=== PATIENT | female | born 1955 | race Two or more races ===

== ENCOUNTER → 2018-03-27 | Outpatient (CLI) | payer OTHER | END | disposition home or self-care (01) | LOC: RAD 15:38 | DX: S63.091A Other subluxation of right wrist and hand, initial encounter (principal); I10 Essential (primary) hypertension; M54.5 Low back pain; E78.89 Other lipoprotein metabolism disorders; E03.8 Other specified hypothyroidism; E66.8 Other obesity; F41.8 Other specified anxiety disorders ==

== ENCOUNTER 2018-06-06 15:18 | Outpatient (CLI) | payer OTHER | END 2018-06-06 15:28 | disposition home or self-care (01) | LOC: MAMO-SONO 15:18 | DX: Z12.31 Encounter for screening mammogram for malignant neoplasm of breast (principal); Z12.39 Encounter for other screening for malignant neoplasm of breast; I10 Essential (primary) hypertension; M54.5 Low back pain; E78.89 Other lipoprotein metabolism disorders; E03.8 Other specified hypothyroidism; E66.8 Other obesity; F41.8 Other specified anxiety disorders ==

== ENCOUNTER → 2019-08-14 | Outpatient (CLI) | payer OTHER | END | disposition home or self-care (01) | LOC: MAMO-SONO 14:51 | DX: Z12.31 Encounter for screening mammogram for malignant neoplasm of breast (principal); Z87.898 Personal history of other specified conditions; I10 Essential (primary) hypertension; M54.5 Low back pain; E78.49 Other hyperlipidemia; E03.8 Other specified hypothyroidism; E66.8 Other obesity; F41.8 Other specified anxiety disorders; Z12.11 Encounter for screening for malignant neoplasm of colon; Z13.820 Encounter for screening for osteoporosis; Z12.39 Encounter for other screening for malignant neoplasm of breast ==

== ENCOUNTER 2019-09-11 14:42 | Outpatient (CLI) | payer OTHER | END 2019-09-11 14:45 | disposition home or self-care (01) | LOC: RAD 14:42 | DX: M25.511 Pain in right shoulder (principal); M79.621 Pain in right upper arm ==

== ENCOUNTER 2019-09-27 11:10 | Outpatient (CLI) | payer OTHER | END 2019-09-27 11:33 | disposition home or self-care (01) | LOC: NUCLEAR 11:10 | DX: M81.0 Age-related osteoporosis without current pathological fracture (principal) ==

== ENCOUNTER → 2019-10-18 | Outpatient (CLI) | payer OTHER | END | disposition home or self-care (01) | LOC: MAMO-SONO 14:15 → SONOGRAMA 14:36 | DX: M25.511 Pain in right shoulder (principal) ==

== ENCOUNTER 2020-03-23 11:20 | Outpatient (CLI) | payer OTHER ==
[2020-03-27] MEDS ORDERED: LEVO-T100 MCG PO (12:46)
[2020-03-27] MEDS ORDERED: INDERAL XL80 MG PO (12:46)
[2020-03-27] MEDS ORDERED: NORVASC5 MG PO (12:47)
[2020-03-27] MEDS ORDERED: SIMVASTATIN5 MG PO (12:47)
[2020-03-27] MEDS ORDERED: ZYRTEC10 M3 PO (12:48)
[2020-03-27] MEDS ORDERED: LOTENSIN20 MG PO (12:48)
== END 2020-03-23 11:29 | disposition home or self-care (01) ==
LOC: LAB 11:20
PROVIDERS: ATTEND Orthopaedic Surgery
DX: D64.89 Other specified anemias (principal); E88.89 Other specified metabolic disorders; D68.8 Other specified coagulation defects; N39.0 Urinary tract infection, site not specified; Z22.322 Carrier or suspected carrier of Methicillin resistant Staphylococcus aureus

== ENCOUNTER 2020-03-25 12:33 | Outpatient (CLI) | payer OTHER ==
[2020-03-27] MEDS ORDERED: INDERAL XL80 MG PO (12:46)
[2020-03-27] MEDS ORDERED: LEVO-T100 MCG PO (12:46)
[2020-03-27] MEDS ORDERED: NORVASC5 MG PO (12:47)
[2020-03-27] MEDS ORDERED: SIMVASTATIN5 MG PO (12:47)
[2020-03-27] MEDS ORDERED: ZYRTEC10 M3 PO (12:48)
[2020-03-27] MEDS ORDERED: LOTENSIN20 MG PO (12:48)
== END 2020-03-25 12:43 | disposition home or self-care (01) ==
LOC: RAD 12:33
PROVIDERS: ATTEND Orthopaedic Surgery
DX: Z76.89 Persons encountering health services in other specified circumstances (principal)

== ENCOUNTER 2020-03-25 13:17 | Outpatient (CLI) | payer OTHER ==
[2020-03-27] MEDS ORDERED: INDERAL XL80 MG PO (12:46)
[2020-03-27] MEDS ORDERED: LEVO-T100 MCG PO (12:46)
[2020-03-27] MEDS ORDERED: NORVASC5 MG PO (12:47)
[2020-03-27] MEDS ORDERED: SIMVASTATIN5 MG PO (12:47)
[2020-03-27] MEDS ORDERED: LOTENSIN20 MG PO (12:48)
[2020-03-27] MEDS ORDERED: ZYRTEC10 M3 PO (12:48)
== END 2020-03-25 13:25 | disposition home or self-care (01) ==
LOC: EKG 13:17
PROVIDERS: ATTEND Orthopaedic Surgery
DX: I49.8 Other specified cardiac arrhythmias (principal); I10 Essential (primary) hypertension

== ENCOUNTER 2020-03-31 07:42 | Day surgery (SDC) | payer OTHER ==
[~2020-03-31 07:42] MED LIST: INDERAL XL80 MG PO; LEVO-T100 MCG PO; LOTENSIN20 MG PO; NORVASC5 MG PO; SIMVASTATIN5 MG PO; ZYRTEC10 M3 PO
== END 2020-03-31 17:00 | disposition home or self-care (01) ==
LOC: CIR.AMB 07:42
PROVIDERS: ATTEND Orthopaedic Surgery
DX: M75.121 Complete rotator cuff tear or rupture of right shoulder, not specified as traumatic (principal); M75.41 Impingement syndrome of right shoulder; M25.311 Other instability, right shoulder; M19.011 Primary osteoarthritis, right shoulder; M75.21 Bicipital tendinitis, right shoulder; M24.511 Contracture, right shoulder

== ENCOUNTER 2020-10-19 14:37 | Outpatient (CLI) | payer OTHER ==
[~2020-10-19 14:37] MED LIST changes: +ZANAFLEX2 MG PO
== END 2020-10-19 14:56 | disposition home or self-care (01) ==
LOC: MAMO-SONO 14:37
PROVIDERS: ATTEND Internal Medicine
DX: Z12.31 Encounter for screening mammogram for malignant neoplasm of breast (principal); E03.8 Other specified hypothyroidism; I10 Essential (primary) hypertension; M54.5 Low back pain; E78.89 Other lipoprotein metabolism disorders; E66.8 Other obesity; F41.8 Other specified anxiety disorders; Z12.11 Encounter for screening for malignant neoplasm of colon

== ENCOUNTER 2021-08-03 13:34 | Outpatient (CLI) | payer OTHER | END 2021-08-03 13:35 | disposition home or self-care (01) | LOC: NUCLEAR 13:34 | PROVIDERS: ATTEND Internal Medicine | DX: M81.0 Age-related osteoporosis without current pathological fracture (principal); M54.59 Other low back pain; Z13.820 Encounter for screening for osteoporosis ==

== ENCOUNTER 2022-01-05 08:00 | Outpatient (CLI) | payer OTHER | END 2022-01-05 08:30 | disposition home or self-care (01) | LOC: PPH VACUNA 08:00 | PROVIDERS: ATTEND Emergency Medicine Pediatric Emergency Medicine | DX: Z23 Encounter for immunization (principal) ==

== ENCOUNTER → 2022-02-02 | Outpatient (CLI) | payer OTHER | END | disposition home or self-care (01) | LOC: MAMO-SONO 11:42 | PROVIDERS: ATTEND Emergency Medicine Pediatric Emergency Medicine | DX: Z12.31 Encounter for screening mammogram for malignant neoplasm of breast (principal); N60.89 Other benign mammary dysplasias of unspecified breast; I10 Essential (primary) hypertension; M54.50 Low back pain, unspecified; E78.9 Disorder of lipoprotein metabolism, unspecified; D03.9 Melanoma in situ, unspecified; E66.8 Other obesity; F41.9 Anxiety disorder, unspecified; Z12.11 Encounter for screening for malignant neoplasm of colon; Z13.820 Encounter for screening for osteoporosis ==

== ENCOUNTER 2022-07-06 14:55 | Outpatient (CLI) | payer OTHER | END 2022-07-06 15:05 | disposition home or self-care (01) | LOC: PPH VACUNA 14:55 | PROVIDERS: ATTEND Emergency Medicine Pediatric Emergency Medicine | DX: Z23 Encounter for immunization (principal) ==

== ENCOUNTER 2023-11-08 14:50 | Outpatient (CLI) | payer OTHER | END 2023-11-08 15:03 | disposition home or self-care (01) | LOC: MAMO-SONO 14:50 | PROVIDERS: ATTEND Internal Medicine | DX: I10 Essential (primary) hypertension (principal); E78.9 Disorder of lipoprotein metabolism, unspecified; E03.9 Hypothyroidism, unspecified; E66.8 Other obesity; F41.9 Anxiety disorder, unspecified; E11.51 Type 2 diabetes mellitus with diabetic peripheral angiopathy without gangrene; E11.9 Type 2 diabetes mellitus without complications; E11.42 Type 2 diabetes mellitus with diabetic polyneuropathy; Z12.11 Encounter for screening for malignant neoplasm of colon; Z13.820 Encounter for screening for osteoporosis; Z12.31 Encounter for screening mammogram for malignant neoplasm of breast; Z12.39 Encounter for other screening for malignant neoplasm of breast ==

== ENCOUNTER 2023-11-15 13:44 | Outpatient (CLI) | payer OTHER | END 2023-11-15 13:45 | disposition home or self-care (01) | LOC: NUCLEAR 13:44 | PROVIDERS: ATTEND Internal Medicine | DX: M81.0 Age-related osteoporosis without current pathological fracture (principal); Z13.820 Encounter for screening for osteoporosis ==

== ENCOUNTER 2025-04-28 14:09 | Outpatient (CLI) | payer OTHER | END 2025-04-28 14:12 | disposition home or self-care (01) | LOC: RAD 14:09 | PROVIDERS: ATTEND Orthopaedic Surgery | DX: M25.551 Pain in right hip (principal); M25.552 Pain in left hip; M25.512 Pain in left shoulder; M54.2 Cervicalgia ==

== ENCOUNTER 2025-05-20 14:18 | Outpatient (CLI) | payer OTHER | END 2025-05-20 14:20 | disposition home or self-care (01) | LOC: RAD 14:18 | PROVIDERS: ATTEND Orthopaedic Surgery | DX: M25.511 Pain in right shoulder (principal) ==

== ENCOUNTER 2025-09-15 13:51 | Outpatient (CLI) | payer OTHER | END 2025-09-15 13:55 | disposition home or self-care (01) | LOC: MAMO-SONO 13:51 | PROVIDERS: ATTEND Internal Medicine | DX: E78.9 Disorder of lipoprotein metabolism, unspecified (principal); E03.9 Hypothyroidism, unspecified; I10 Essential (primary) hypertension; F41.9 Anxiety disorder, unspecified; E11.51 Type 2 diabetes mellitus with diabetic peripheral angiopathy without gangrene; E11.9 Type 2 diabetes mellitus without complications; E11.42 Type 2 diabetes mellitus with diabetic polyneuropathy; Z12.11 Encounter for screening for malignant neoplasm of colon; Z13.820 Encounter for screening for osteoporosis; Z12.31 Encounter for screening mammogram for malignant neoplasm of breast; Z12.39 Encounter for other screening for malignant neoplasm of breast; N60.09 Solitary cyst of unspecified breast ==

== ENCOUNTER 2025-09-23 | Emergency (ER) | payer OTHER ==
[~2025-09-23] VITALS: Ht 165.1 cm; Wt 81.6 kg
[2025-09-23 03:17] LABS: BASO % 0.6 % (0.1-1.2); EOS # 0.02 (0.04-0.54); EOS % 0.4 % (0.7-7.0); LYMPH # 0.27 (1.18-3.74); LYMPH % 5.4 % (19.3-53.1); MEAN PLATELET VOLUME 9.50 fl (9.4-12.4); MONO # 0.47 (0.24-0.82); MONO % 9.3 % (4.7-12.5); NEUT # 4.24 (1.56-6.13); NEUT % 84.1 % (34.0-71.1); RED CELL DISTRIBUTION WIDTH 13.2 % (11.6-14.4)
[2025-09-23 03:27] LABS: INR 1.03
[2025-09-23 03:30] LABS: ALT/SGPT 52.0 U/L (12-78); AST/SGOT 28.0 U/L (15-37); BILIRUBIN TOTAL 0.32 mg/dL (0.3-1.2); BUN CREA RATIO 9.0 (7.0-25.0); CREATININE SERUM 0.89 mg/dL (0.55-1.02); GFR 62.52; GLOBULINA 3.7 G/DL (2.4-3.5); GLUCOSE FASTING 135.0 mg/dL (65-100); OSMOLALITY SERUM 276.0 MOSM/KG (275-295)
[2025-09-23 03:48] LABS: COVID-19 AG NEGATIVE (NEGATIVE)
[2025-09-23] MEDS ORDERED: DIPHENHYDRAMINE HCL 50 MG CAPSULE PO STA (04:17)
[2025-09-23] MEDS ORDERED: ACETAMINOPHEN 500 MG GEL..CAP PO STA (04:17)
[2025-09-23] MEDS ORDERED: CLONIDINE HCL 0.1 MG TABLET PO STA (04:18)
[2025-09-23] MEDS ORDERED: 0.9 % SODIUM CHLORIDE 1,000 ML IV SCH (04:30)
[2025-09-23] MEDS ORDERED: ACETAMINOPHEN 500 MG GEL..CAP PO ONE (04:41)
[2025-09-23] MEDS ORDERED: CLONIDINE HCL 0.1 MG TABLET PO ONE (04:41)
[2025-09-23] MEDS ORDERED: DIPHENHYDRAMINE HCL 12.5 MG/5 ML BLIST.PACK PO ONE (04:41)
[2025-09-23] MEDS ORDERED: ONDANSETRON HCL 2 MG/ML VIAL IV STA (04:58)
[2025-09-23] MEDS ORDERED: FAMOTIDINE/PF 20 MG/2 ML VIAL IV STA (04:58)
[2025-09-23] MEDS ORDERED: FAMOTIDINE/PF 20 MG/2 ML VIAL ONE (05:12)
[2025-09-23] MEDS ORDERED: ONDANSETRON HCL 2 MG/ML VIAL ONE (05:12)
[2025-09-23] MEDS ORDERED: PEPCID20 MG PO (06:05)
[2025-09-23] MEDS ORDERED: XYZAL5 MG PO (06:05)
[2025-09-23] MEDS ORDERED: OSEL75CA PO (06:05)
== END 2025-09-23 06:44 | disposition home or self-care (01) ==
LOC: ER
PROVIDERS: Physician Assistant Medical
DX: B34.9 Viral infection, unspecified (principal); I10 Essential (primary) hypertension; E03.8 Other specified hypothyroidism; R50.9 Fever, unspecified; R51.9 Headache, unspecified; R05.8 Other specified cough; R11.2 Nausea with vomiting, unspecified; I16.9 Hypertensive crisis, unspecified; J10.1 Influenza due to other identified influenza virus with other respiratory manifestations; K52.89 Other specified noninfective gastroenteritis and colitis; Z20.822 Contact with and (suspected) exposure to COVID-19; Z88.6 Allergy status to analgesic agent
CPT/HCPCS: 36415; 71046; 93005; 96365; 96366; 99283; J2405; J3490; J7030